=== PATIENT | female | born 1975 | race Caucasian/White ===

== ENCOUNTER 2019-03-18 22:33 | Inpatient (IN) | payer BC ==
[~2019-03-18] VITALS: Ht 162.6 cm; Wt 95.0 kg
[2019-03-18] MEDS ORDERED: BETAMETHASONE 6 MG/ML, 5ML IM ONE (23:11)
[2019-03-18] MEDS: BETAMETHASONE 6 MG/ML, 5ML IM SCH (23:22)
[2019-03-18] MEDS ORDERED: PENICILLIN GK 5,000,000 UNITS in DEXTROSE 5% 100 ML IVPB ONE (23:30)
[2019-03-18] MEDS ORDERED: TERBUTALINE 1 MG/ML, 1ML IVPush PRN (23:30)
[2019-03-18] MEDS ORDERED: TERBUTALINE 1 MG/ML, 1ML SQ PRN (23:30)
[2019-03-18] MEDS: LACTATED RINGERS 1,000 ML IV SCH (23:37)
[2019-03-18 23:44] LABS: BASOPHILS # (AUTO) 0.04 x10^3/uL (0-0.1); BASOPHILS % (AUTO) 0 % (0-1); EOSINOPHILS # (AUTO) 0.17 x10^3/uL (0-0.4); EOSINOPHILS % (AUTO) 2 % (1-7); LYMPHOCYTES # (AUTO) 2.13 x10^3/uL (1-3.4); LYMPHOCYTES % (AUTO) 20 % (22-44); MD NO; MEAN CORPUSCULAR HEMOGLOBIN 33.6 pg (27.0-34.8); MEAN CORPUSCULAR HGB CONC 34.3 g/dL (32.4-35.8); MEAN CORPUSCULAR VOLUME 97.9 fL (80-100); MEAN PLATELET VOLUME 9.7 fL (7.4-10.4); MONOCYTES # (AUTO) 0.58 x10^3/uL (0.2-0.8); MONOCYTES % (AUTO) 5 % (2-9); NEUTROPHILS # (AUTO) 7.72 x10^3/uL (1.8-6.8); NEUTROPHILS % (AUTO) 73 % (42-75); PLATELET COUNT 202 x10^3/uL (130-400); RED BLOOD COUNT 3.95 x10^6/uL (3.82-5.3); RED CELL DISTRIBUTION WIDTH 13.6 % (9.6-15.2)
[2019-03-19 00:44] VITALS: BP 139/92
[2019-03-19 01:30] VITALS: BP 134/90
[2019-03-19] MEDS: PENICILLIN GK 2,500,000 UNITS in DEXTROSE 5% 100 ML IVPB SCH ×3 (03:31→11:31)
[2019-03-19] MEDS ORDERED: TERBUTALINE 1 MG/ML, 1ML ONE (03:41)
[2019-03-19 04:42] VITALS: BP 138/85
[2019-03-19] MEDS: LACTATED RINGERS 1,000 ML IV SCH ×4 (05:23→22:17)
[2019-03-19] MEDS ORDERED: LACTATED RINGERS 1,000 ML IVBOLUS ONE (07:30)
[2019-03-19] MEDS ORDERED: METOCLOPRAMIDE 5 MG/ML, 2ML IV ONE (07:30)
[2019-03-19] MEDS ORDERED: SODIUM CITRATE/CITRIC ACID 15 ML UDC PO ONE (07:30)
[2019-03-19 08:00] LABS: BASOPHILS % (AUTO) 0 % (0-1); EOSINOPHILS % (AUTO) 0 % (1-7); LYMPHOCYTES # (AUTO) 0.92 x10^3/uL (1-3.4); LYMPHOCYTES % (AUTO) 9 % (22-44); MD NO; MEAN CORPUSCULAR HEMOGLOBIN 32.9 pg (27.0-34.8); MEAN CORPUSCULAR HGB CONC 33.9 g/dL (32.4-35.8); MEAN CORPUSCULAR VOLUME 96.8 fL (80-100); MEAN PLATELET VOLUME 9.8 fL (7.4-10.4); MONOCYTES # (AUTO) 0.04 x10^3/uL (0.2-0.8); MONOCYTES % (AUTO) 0 % (2-9); NEUTROPHILS # (AUTO) 9.29 x10^3/uL (1.8-6.8); NEUTROPHILS % (AUTO) 91 % (42-75); PLATELET COUNT 200 x10^3/uL (130-400); RED BLOOD COUNT 3.99 x10^6/uL (3.82-5.3); RED CELL DISTRIBUTION WIDTH 13.6 % (9.6-15.2)
[2019-03-19 08:08] LABS: ALBUMIN 2.5 g/dL (3.4-5.0); ANION GAP 9 mmol/L (5-15); CALCIUM 8.8 mg/dL (8.5-10.1); CHLORIDE 110 mmol/L (98-107)
[2019-03-19 08:11] LABS: ALANINE AMINOTRANSFERASE 15 U/L (12-78); ALKALINE PHOSPHATASE 104 U/L (45-117); BILIRUBIN,TOTAL 0.6 mg/dL (0.2-1.0); CREATININE 0.95 mg/dL (0.55-1.02); TOTAL PROTEIN 6.3 g/dL (6.4-8.2)
[2019-03-19 08:25] LABS: BILIRUBIN, DIRECT < 0.1 mg/dL (0.1-0.2)
[2019-03-19 08:31] LABS: MICROSCOPIC INDICATED
[2019-03-19] MEDS ORDERED: NEWBORN KIT ONE (09:17)
[2019-03-19] MEDS ORDERED: METOCLOPRAMIDE 5 MG/ML, 2ML ONE (09:26)
[2019-03-19] MEDS ORDERED: SODIUM CITRATE/CITRIC ACID 15 ML UDC ONE (09:26)
[2019-03-19] MEDS ORDERED: OXYTOCIN 30U/ 0.9% NaCL 500ML 500 ML ONE (09:28)
[2019-03-19] MEDS: BETAMETHASONE 6 MG/ML, 5ML IM SCH (11:00)
[2019-03-19] MEDS ORDERED: EPHEDRINE 50 MG/ML, 1ML ONE (11:28)
[2019-03-19] MEDS ORDERED: OXYTOCIN 10 UNITS/ML, 1ML ONE (11:28)
[2019-03-19] MEDS ORDERED: CEFAZOLIN 1,000 MG ONE (11:28)
[2019-03-19] MEDS ORDERED: PHENYLEPHRINE 10 MG/ML ONE (11:28)
[2019-03-19] MEDS ORDERED: KETOROLAC 30 MG/1 ML ONE (11:28)
[2019-03-19] MEDS ORDERED: FENTANYL PF 100 MCG/2ML ONE (11:28)
[2019-03-19] MEDS ORDERED: DEXAMETHASONE 4 MG/ML, 1ML ONE (11:28)
[2019-03-19] MEDS ORDERED: ONDANSETRON 2MG/ML, 2ML ONE ×2 (11:28→14:58)
[2019-03-19] MEDS ORDERED: ALBUTEROL/IPRATROPIUM 2.5MG/0.5MG, 3 ML NPPB PRN (11:30)
[2019-03-19] MEDS ORDERED: OXYcodone 5 MG/5 ML ORAL.SOL UDC PO PRN ×2 (11:30→15:30)
[2019-03-19] MEDS ORDERED: PROMETHAZINE 25 MG/ML, 1ML IV PRN (11:30)
[2019-03-19] MEDS ORDERED: LABETALOL 5MG/ML, 20ML IV PRN (11:30)
[2019-03-19] MEDS ORDERED: METOPROLOL 1 MG/ML, 5ML IV PRN (11:30)
[2019-03-19] MEDS ORDERED: ONDANSETRON 2MG/ML, 2ML IVPush PRN (11:30)
[2019-03-19] MEDS ORDERED: HYDROcodone/APAP 7.5-325MG/15ML UDC PO PRN (11:30)
[2019-03-19] MEDS ORDERED: hydrALAzine 20 MG/ML, 1ML IV PRN (11:30)
[2019-03-19] MEDS ORDERED: FENTANYL PF 100 MCG/2ML IV PRN (11:30)
[2019-03-19] MEDS ORDERED: MIDAZOLAM 1 MG/ML, 2ML IV PRN (11:30)
[2019-03-19] MEDS ORDERED: HYDROmorphone 2 MG/ML, 1ML IVPush PRN (11:30)
[2019-03-19] MEDS ORDERED: MEPERIDINE/PF 25MG/0.5ML IVPush PRN (11:30)
[2019-03-19] MEDS ORDERED: EPHEDRINE 50 MG/ML, 1ML IVPush PRN (11:30)
[2019-03-19] MEDS ORDERED: LACTATED RINGERS 1,000 ML IV SCH (12:17)
[2019-03-19] MEDS ORDERED: HYDROmorphone 2 MG/ML, 1ML ONE (12:27)
[2019-03-19] MEDS ORDERED: MORPHINE SULFATE 4 MG/ML, 1ML IVPush PRN (12:30)
[2019-03-19] MEDS ORDERED: ONDANSETRON 2MG/ML, 2ML IV PRN (12:30)
[2019-03-19] MEDS ORDERED: CALCIUM CARBONATE 500 MG TAB.CHEW PO PRN (12:30)
[2019-03-19] MEDS ORDERED: METHYLERGONOVINE 0.2 MG/ML IM PRN (12:30)
[2019-03-19] MEDS ORDERED: METOCLOPRAMIDE 5 MG/ML, 2ML IV PRN (12:30)
[2019-03-19] MEDS ORDERED: MISOPROSTOL 200 MCG TABLET SL PRN (12:30)
[2019-03-19] MEDS ORDERED: DIPH,PERTUSS(ACELL),TET VAC/PF NC IM-VACC PRN (12:30)
[2019-03-19] MEDS: KETOROLAC 30 MG/1 ML IV SCH ×2 (13:30→19:44)
[2019-03-19] MEDS: OXYTOCIN 30U/ 0.9% NaCL 500ML 500 ML IV SCH ×2 (13:53→22:17)
[2019-03-19] MEDS ORDERED: OXYcodone 5 MG/5 ML ORAL.SOL UDC ONE (15:21)
[2019-03-19 16:00] VITALS: BP 120/84
[2019-03-19 19:45] VITALS: BP 113/73
[2019-03-19] MEDS: DOCUSATE 100 MG CAPSULE PO SCH (19:45)
[2019-03-19] MEDS: OXYcodone IR 5MG TABLET PO PRN (19:46)
[2019-03-19 21:29] LABS: BASOPHILS % (AUTO) 0 % (0-1); EOSINOPHILS # (AUTO) 0.23 x10^3/uL (0-0.4); EOSINOPHILS % (AUTO) 1 % (1-7); LYMPHOCYTES # (AUTO) 1.23 x10^3/uL (1-3.4); LYMPHOCYTES % (AUTO) 7 % (22-44); MD NO; MEAN CORPUSCULAR HEMOGLOBIN 33.1 pg (27.0-34.8); MEAN CORPUSCULAR HGB CONC 33.7 g/dL (32.4-35.8); MEAN CORPUSCULAR VOLUME 98.3 fL (80-100); MEAN PLATELET VOLUME 9.9 fL (7.4-10.4); MONOCYTES # (AUTO) 0.96 x10^3/uL (0.2-0.8); MONOCYTES % (AUTO) 5 % (2-9); NEUTROPHILS # (AUTO) 16.34 x10^3/uL (1.8-6.8); NEUTROPHILS % (AUTO) 87 % (42-75); PLATELET COUNT 184 x10^3/uL (130-400); RED BLOOD COUNT 3.48 x10^6/uL (3.82-5.3); RED CELL DISTRIBUTION WIDTH 13.9 % (9.6-15.2)
[2019-03-20] MEDS: KETOROLAC 30 MG/1 ML IV SCH ×2 (00:34→08:39)
[2019-03-20] MEDS: OXYcodone IR 5MG TABLET PO PRN ×6 (00:35→19:52)
[2019-03-20 00:43] VITALS: BP 127/85
[2019-03-20 04:17] VITALS: BP 127/87
[2019-03-20 08:15] VITALS: BP 117/81
[2019-03-20] MEDS: LACTATED RINGERS 1,000 ML IV SCH ×2 (08:17→18:17)
[2019-03-20] MEDS: OXYTOCIN 30U/ 0.9% NaCL 500ML 500 ML IV SCH ×2 (08:17→18:17)
[2019-03-20] MEDS: DOCUSATE 100 MG CAPSULE PO SCH ×2 (08:39→19:51)
[2019-03-20] MEDS: PRENATAL VIT/IRON/FA 1 EACH TABLET PO SCH (08:39)
[2019-03-20 12:57] VITALS: BP 122/79
[2019-03-20] MEDS: IBUPROFEN 800 MG TABLET PO PRN ×2 (15:17→23:28)
[2019-03-20 19:45] VITALS: BP 123/86
[2019-03-21] MEDS: OXYcodone IR 5MG TABLET PO PRN ×5 (00:14→20:05)
[2019-03-21] MEDS: ACETAMINOPHEN 325 MG TABLET PO PRN ×2 (00:15→12:25)
[2019-03-21] MEDS: LACTATED RINGERS 1,000 ML IV SCH ×2 (04:17→14:17)
[2019-03-21] MEDS: OXYTOCIN 30U/ 0.9% NaCL 500ML 500 ML IV SCH ×2 (04:17→14:17)
[2019-03-21] MEDS: IBUPROFEN 600 MG TABLET PO PRN ×2 (07:42→14:16)
[2019-03-21] MEDS: DOCUSATE 100 MG CAPSULE PO SCH ×2 (07:42→20:05)
[2019-03-21 07:50] VITALS: BP 137/87
[2019-03-21] MEDS: PRENATAL VIT/IRON/FA 1 EACH TABLET PO SCH (09:00)
[2019-03-21 20:00] VITALS: BP 127/85
[2019-03-21] MEDS: SIMETHICONE 80 MG CHEW TAB PO PRN (23:11)
[2019-03-21] MEDS: IBUPROFEN 800 MG TABLET PO PRN (23:11)
[2019-03-22] MEDS: ACETAMINOPHEN 325 MG TABLET PO PRN ×3 (03:21→16:17)
[2019-03-22] MEDS: OXYcodone IR 5MG TABLET PO PRN ×3 (03:25→16:18)
[2019-03-22 07:29] VITALS: BP 125/84
[2019-03-22] MEDS: SIMETHICONE 80 MG CHEW TAB PO PRN ×2 (08:20→16:18)
[2019-03-22] MEDS: IBUPROFEN 600 MG TABLET PO PRN ×2 (08:21→21:54)
[2019-03-22] MEDS: DOCUSATE 100 MG CAPSULE PO SCH ×2 (08:21→21:54)
[2019-03-22] MEDS: PRENATAL VIT/IRON/FA 1 EACH TABLET PO SCH (09:00)
[2019-03-22 20:00] VITALS: BP 135/83
[2019-03-23] MEDS: SIMETHICONE 80 MG CHEW TAB PO PRN (07:49)
[2019-03-23 07:50] VITALS: BP 144/88
[2019-03-23] MEDS: DOCUSATE 100 MG CAPSULE PO SCH (07:50)
[2019-03-23] MEDS: IBUPROFEN 600 MG TABLET PO PRN ×2 (07:50→15:28)
[2019-03-23] MEDS ORDERED: POLYETHYLENE GLYCOL 17 GM PACKET PO ONE (13:00)
[2019-03-23] MEDS ORDERED: DOCU-131 PO (15:13)
[2019-03-23] MEDS ORDERED: IBUP-1223 PO (15:13)
[2019-03-23] MEDS ORDERED: OXYC-302 PO (15:13)
[2019-03-23] MEDS: ACETAMINOPHEN 325 MG TABLET PO PRN (15:28)
[2019-03-23] MEDS: OXYcodone IR 5MG TABLET PO PRN (15:30)
== END 2019-03-23 17:40 | disposition home or self-care (01) | DRG 786 ==
LOC: LDOP 22:33 → LDIP 23:11 → 2NW 03-19 15:48
PROVIDERS: ADMIT Obstetrics & Gynecology; ATTEND Obstetrics & Gynecology
PROC: 10D00Z1 Extraction of Products of Conception, Low, Open Approach (ICD-10-PCS; principal; 2019-03-19)
DX: O42.913 Preterm premature rupture of membranes, unspecified as to length of time between rupture and onset of labor, third trimester (principal); O60.14X0 Preterm labor third trimester with preterm delivery third trimester, not applicable or unspecified; O69.81X0 Labor and delivery complicated by cord around neck, without compression, not applicable or unspecified; O34.13 Maternal care for benign tumor of corpus uteri, third trimester; O99.52 Diseases of the respiratory system complicating childbirth; Z37.0 Single live birth; Z3A.34 34 weeks gestation of pregnancy; J45.909 Unspecified asthma, uncomplicated; O13.4 Gestational [pregnancy-induced] hypertension without significant proteinuria, complicating childbirth; D25.9 Leiomyoma of uterus, unspecified; O32.8XX0 Maternal care for other malpresentation of fetus, not applicable or unspecified
CPT/HCPCS: 36415; 76815; 80053; 81001; 82248; 82570; 82803; 84156; 84550; 85025; 86850; 86900; 86923; 88305; 89060; G0378; J0690; J0702; J1100; J1170; J1885; J2405; J2540; J3010; J2270; J2370; J2590; J2765; J3105; J7120; Q0114